=== PATIENT | male | born 1955 | race Two or more races ===

== ENCOUNTER 2022-01-01 16:57 | Emergency (ER) | payer OTHER ==
[~2022-01-01] VITALS: Ht 185.4 cm; Wt 93.0 kg
[2022-01-01] MEDS ORDERED: SINGULAIR5 MG PO (17:06)
[2022-01-01] MEDS ORDERED: LISINOPRIL10 MG PO (17:07)
== END 2022-01-01 21:34 | disposition home or self-care (01) ==
LOC: ER 16:57
DX: M62.838 Other muscle spasm (principal); Z88.6 Allergy status to analgesic agent; I10 Essential (primary) hypertension; Z87.09 Personal history of other diseases of the respiratory system; J45.909 Unspecified asthma, uncomplicated